=== PATIENT | male | born 1945 | race African-American/Black ===

== ENCOUNTER 2024-12-18 05:47 | Inpatient (IN) | payer OTHER, MEDICARE ==
[~2024-12-18] VITALS: Ht 175.3 cm; Wt 99.0 kg
[2024-12-18 05:51] VITALS: O2SAT 99
[2024-12-18 06:29] LABS: BASOPHILS % 0.3 % (0.0-2.0); EOSINOPHILS % 1.2 % (0.0-5.0); HEMATOCRIT. 38.8 % (42.0-52.0); HEMOGLOBIN. 12.8 g/dL (14.0-18.0); LYMPHOCYTES % 12.4 % (20.0-50.0); MEAN PLATELET VOLUME 8.0 fl (7.4-10.4); MONOCYTES % 10.9 % (2.0-8.0); NEUTROPHILS % 75.2 % (40.0-76.0); PLATELET 193 x1000/uL (130-400); RED BLOOD CELL COUNT 4.12 mill/uL (4.7-6.1); RED CELL DISTRIBUTION WIDTH 13.7 % (11.6-14.6)
[2024-12-18 06:42] LABS: CREATININE 1.3 mg/dL (0.6-1.3)
[2024-12-18 06:43] LABS: UREA NITROGEN BLOOD 24 mg/dL (9-23)
[2024-12-18 06:44] LABS: TROPONIN I HIGH SENSITIVITY 8 ng/L (3.0-53)
[2024-12-18 09:30] VITALS: BP 118/73; PULSE 83; RESP 18; TEMP 36.2; O2SAT 100
[2024-12-18] MEDS ORDERED: ALLO300T2 (09:56)
[2024-12-18] MEDS ORDERED: ATOR20TA65 (09:56)
[2024-12-18] MEDS ORDERED: PANT40SU PO (09:56)
[2024-12-18] MEDS ORDERED: THIA50TA12 PO (09:56)
[2024-12-18] MEDS ORDERED: LISI10TA26 PO (09:57)
[2024-12-18] MEDS ORDERED: QUET25TA36 PO (09:58)
[2024-12-18 10:00] VITALS: BP 118/73; PULSE 83; RESP 18; TEMP 36.1956
[2024-12-18] MEDS ORDERED: FERR325T6 PO (10:02)
[2024-12-18] MEDS ORDERED: LIPA1CAP18 MT (10:07)
[2024-12-18] MEDS ORDERED: GLIP10TA17 PO (10:07)
[2024-12-18] MEDS ORDERED: ASPI-1406 PO (10:07)
[2024-12-18 12:00] VITALS: BP 110/56; PULSE 77; RESP 18; TEMP 36.1; O2SAT 99
[2024-12-18] MEDS ORDERED: HYDROCODONE/ACETAMINOPHEN 7.5/325MG TABLET PO PRN (14:45)
[2024-12-18] MEDS ORDERED: IPRATROPIUM/ALBUTEROL 0.5-3(2.5)MG/3ML NEB HHN PRN (14:45)
[2024-12-18] MEDS ORDERED: ONDANSETRON HCL 4MG/2ML INJ IV PRN (14:45)
[2024-12-18] MEDS ORDERED: NALOXONE HCL 0.4MG/ML VIAL IV PRN (15:00)
[2024-12-18 16:00] VITALS: BP 140/96; PULSE 78; RESP 20; TEMP 36.5; O2SAT 100
[2024-12-18] MEDS: QUETIAPINE FUMARATE 25MG TABLET PO SCH (16:11)
[2024-12-18] MEDS: ASPIRIN 81MG EC TABLET PO SCH (16:11)
[2024-12-18 20:00] VITALS: BP 114/69; PULSE 61; RESP 18; TEMP 36.3; O2SAT 96
[2024-12-18] MEDS: ATORVASTATIN CALCIUM 40MG TABLET PO SCH (20:58)
[2024-12-18] MEDS: ENOXAPARIN 40MG/0.4ML SYR SUBCUT SCH (20:59)
[2024-12-18] MEDS: DEXT 5%/0.45% NACL 1000ML 1,000 ML IV SCH (20:59)
[2024-12-19 00:03] VITALS: BP 98/71; PULSE 77; RESP 18; TEMP 36.5; O2SAT 98
[2024-12-19 04:00] VITALS: BP 111/80; PULSE 73; RESP 18; TEMP 36.3; O2SAT 97
[2024-12-19 07:07] LABS: HEMATOCRIT. 36.2 % (42.0-52.0); HEMOGLOBIN. 12.0 g/dL (14.0-18.0); MEAN PLATELET VOLUME 8.4 fl (7.4-10.4); PLATELET 184 x1000/uL (130-400); RED BLOOD CELL COUNT 3.88 mill/uL (4.7-6.1); RED CELL DISTRIBUTION WIDTH 13.9 % (11.6-14.6)
[2024-12-19 07:23] LABS: CREATININE 1.1 mg/dL (0.6-1.3)
[2024-12-19 07:24] LABS: TRIGLYCERIDE 68 mg/dL (0-150); UREA NITROGEN BLOOD 18 mg/dL (9-23)
[2024-12-19 07:25] LABS: LDL CHOLESTEROL 78 mg/dL (5-100)
[2024-12-19 08:39] VITALS: BP 105/67; PULSE 72; RESP 18; TEMP 36.4; O2SAT 97
[2024-12-19 16:00] VITALS: BP 119/69; PULSE 84; RESP 18; TEMP 36.8; O2SAT 98
[2024-12-19 16:41] LABS: LYMPHOCYTES % MANUAL 27.0 % (20.0-50.0); MONOCYTES % MANUAL 10.0 % (2.0-8.0); NEUTROPHILS % MANUAL 63.0 % (45.0-75.0); PLATELET ESTIMATE NORMAL
[2024-12-19 16:49] VITALS: BP 119/69; PULSE 84; RESP 16; TEMP 96.9
[2024-12-20] MEDS ORDERED: ALLOPURINOL 100 MG TABLET PO SCH (09:00)
== END 2024-12-19 17:13 | disposition home or self-care (01) | DRG 637 ==
LOC: ER 05:47 → EDBEDREQTM 07:59 → EDBEDREQ 07:59 → 7WST 07:59 → ENRESERV 08:13
PROVIDERS: ADMIT Internal Medicine; ATTEND Internal Medicine
DX: E11.649 Type 2 diabetes mellitus with hypoglycemia without coma (principal); G93.41 Metabolic encephalopathy; E78.5 Hyperlipidemia, unspecified; I10 Essential (primary) hypertension; T50.995A Adverse effect of other drugs, medicaments and biological substances, initial encounter; M10.9 Gout, unspecified; Z79.899 Other long term (current) drug therapy; Y92.89 Other specified places as the place of occurrence of the external cause
CPT/HCPCS: 36415; 71045; 80048; 80061; 82962; 83036; 84484; 85025; 93005; 99285; J1650